=== PATIENT | female | born 2005 | race Hispanic/Latino ===

== ENCOUNTER 2024-04-08 10:32 | Emergency (ER) | payer OTHER ==
[~2024-04-08] VITALS: Ht 152.4 cm; Wt 71.7 kg
[2024-04-08 10:35] VITALS: BP 137/69; PULSE 80; RESP 18; TEMP 98.8; O2SAT 98
[2024-04-08 11:38] LABS: BASOPHILS # (AUTO) 0.01 K/uL (0.00-0.20); BASOPHILS % (AUTO) 0.5 % (0.0-5.0); EOSINOPHILS # (AUTO) 0.11 K/uL (0.00-0.70); EOSINOPHILS % (AUTO) 5.2 % (0.0-8.0); IMMATURE GRANULOCYTE ABSOLUTE 0.01 K/uL (0-1); LYMPHOCYTES # (AUTO) 0.9 K/uL (1.0-4.8); LYMPHOCYTES % (AUTO) 42.7 % (21.0-51.0); MEAN CORPUSCULAR HEMOGLOBIN 26.2 pg (27.0-33.0); MEAN CORPUSCULAR HGB CONC 31.8 g/dL (32.0-36.0); MEAN CORPUSCULAR VOLUME 82.3 fL (80-100); MONOCYTES # (AUTO) 0.3 K/uL (0.1-1.0); MONOCYTES % (AUTO) 12.2 % (3.0-13.0); NEUTROPHILS # (AUTO) 0.8 K/uL (1.8-7.7); NEUTROPHILS % (AUTO) 38.9 % (40.0-77.0); PLATELET COUNT (AUTO) 258 K/uL (130-400); RED BLOOD CELL COUNT(AUTO) 4.62 MIL/uL (4.00-5.50); RED CELL DISTRIBUTION WIDTH 13.5 % (11.0-15.5); WHITE BLOOD COUNT (AUTO) 2.1 K/uL (4.8-10.8)
[2024-04-08 11:47] LABS: POTASSIUM 4.6 mmol/L (3.5-5.1)
[2024-04-08] MEDS: IBUPROFEN 800 MG TAB PO ONE (13:09)
[2024-04-08] MEDS ORDERED: IBUP-2077 PO (13:38)
[2024-04-08 13:56] LABS: EOSINOPHILS % (MANUAL) 6 % (1-6); LYMPHOCYTES % (MANUAL) 55 % (22-44); MAN.DIFF COMMENT-IMPRESSION MANUAL DIFFERENTIAL; MONOCYTES % (MANUAL) 11 % (2-9); PLATELET MORPHOLOGY COMMENT ADEQUATE; SEGMENTED NEUTROPHILS % 28 % (40-70); TOTAL CELLS COUNTED 100
== END 2024-04-08 13:50 | disposition home or self-care (01) ==
LOC: EDH 10:32
DX: M25.561 Pain in right knee (principal); D72.819 Decreased white blood cell count, unspecified; F41.9 Anxiety disorder, unspecified; F32.A Depression, unspecified
CPT/HCPCS: 36415; 80048; 85025

== ENCOUNTER → 2024-06-14 | Outpatient (CLI) | payer OTHER ==
[~2024-06-14] MED LIST: IBUP-2077 PO
--- NOTE | 2024-06-14 10:37 | HMCIMG ---
MR KNEE RIGHT WO REASON: S80.01XA Contusion of right knee, initial encounter COMPARISON: None TECHNIQUE: Routine imaging protocol was performed in the axial, sagittal and coronal plane with T1, proton density, T2 and gradient recalled sequences. FINDINGS: There is a complex nondisplaced tear mid zone of the lateral meniscus. This begins in the inferior meniscal surface and extends laterally to the peripheral margin. Anterior and posterior horns appear intact. The medial meniscus appears intact. Cartilage appears preserved. There is no evidence of osseous contusion. Cruciate and collateral ligaments appear unremarkable. Quadriceps and patellar tendons appear normal. There is no joint effusion. Surrounding soft tissues appear unremarkable. IMPRESSION: 1. Complex nondisplaced tear mid zone of the lateral meniscus, extending to the peripheral meniscal surface, there is no evidence of meniscal cyst. 2. Otherwise unremarkable exam.
== END | disposition home or self-care (01) ==
LOC: RAH 07:42
PROVIDERS: ATTEND Student in an Organized Health Care Education/Training Program
DX: S83.271A Complex tear of lateral meniscus, current injury, right knee, initial encounter (principal); S83.261A Peripheral tear of lateral meniscus, current injury, right knee, initial encounter; S80.01XA Contusion of right knee, initial encounter; M25.561 Pain in right knee; X58.XXXA Exposure to other specified factors, initial encounter; Y93.89 Activity, other specified; Y92.89 Other specified places as the place of occurrence of the external cause; Y99.8 Other external cause status
CPT/HCPCS: 73721